=== PATIENT | female | born 1960 | race Caucasian/White ===

== ENCOUNTER → 2025-02-18 14:32 | Outpatient (REF) | payer BC, SELFPAY | LOC: HWWDC 14:32 | PROVIDERS: ATTENDING PHYSICIAN Hospitalist | DX: Z12.31 Encounter for screening mammogram for malignant neoplasm of breast (principal) | CPT/HCPCS: 77063; 77067 ==

== ENCOUNTER → 2025-03-06 09:53 | Outpatient (REF) | payer BC, SELFPAY | LOC: WDC 09:53 | PROVIDERS: ATTENDING PHYSICIAN Hospitalist | DX: R92.8 Other abnormal and inconclusive findings on diagnostic imaging of breast (principal) | CPT/HCPCS: 76642 ==